=== PATIENT | female | born 1940 | race Caucasian/White ===

== ENCOUNTER 2017-03-04 09:10 | Outpatient (CLI) | payer OTHER, BC ==
--- NOTE | 2017-03-04 12:59 | DIAGNOSTIC IMAGING REPORT ---
PROCEDURE: US ART LOWER EXT WITH PASCUAL-B/L INDICATION: DIABETIC, NON HEALING ULCERS TECHNIQUE: Color Doppler duplex imaging of the lower extremity arterial system was performed bilaterally. Pre exercise ABIs were acquired. The patient was unable to exercise. COMPARISON: None. FINDINGS: RIGHT LOWER EXTREMITY: ABIs: Pre exercise posterior tibial: 1.12. Pre exercise dorsalis pedis: 1.01. VESSELS/ WAVEFORMS: Triphasic arterial inflow there is triphasic flow throughout the majority of the right lower extremity with biphasic arterial flow in the right dorsalis pedis. Mild calf edema seen. No focal arterial stenosis visualized. RIGHT LOWER EXTREMITY PEAK SYSTOLIC VELOCITIES: External iliac: 112 cm/second. Common femoral artery: 100 cm/second. Profunda femoral artery: 35 cm/second. Proximal superficial femoral artery: 113 cm/second. Mid superficial femoral artery: 116 cm/second. Distal superficial femoral artery: 92 cm/second. Popliteal artery: 72 cm/second. Proximal posterior tibial artery: 76 cm/second. Proximal anterior tibial artery: 62 cm/second. Peroneal artery: 53 cm/second. Distal posterior tibial artery: 90 cm/second. Dorsalis pedis artery: 75 cm/second. LEFT LOWER EXTREMITY: ABIs: Pre exercise posterior tibial: 1.12. Pre exercise dorsalis pedis: 1.03. VESSELS/ WAVEFORMS: Barely triphasic arterial inflow and biphasic flow throughout the left lower extremity. LEFT LOWER EXTREMITY PEAK SYSTOLIC VELOCITIES: External iliac: 86 cm/second. Common femoral artery: 87 cm/second. Profunda femoral artery: 79 cm/second. Proximal superficial femoral artery: 110 cm/second. Mid superficial femoral artery: 97 cm/second. Distal superficial femoral artery: 89 cm/second. Popliteal artery: 65 cm/second. Proximal posterior tibial artery: 57 cm/second. Proximal anterior tibial artery: 76 cm/second. Peroneal artery: 45 cm/second. Distal posterior tibial artery: 78 cm/second. Dorsalis pedis artery: 80 cm/second. IMPRESSION: 1. Biphasic arterial flow in the left lower extremity suggestive of mild atherosclerotic disease without focal arterial stenosis. 2. No evidence of resting arterial insufficiency given ankle-brachial indices. 3. No focal velocity elevation or wave form change in the right lower extremity to suggest a focal arterial stenosis.
--- NOTE | 2017-03-04 13:04 | DIAGNOSTIC IMAGING REPORT ---
PROCEDURE: US VENOUS - BILATERAL EXT INDICATION: DIABETIC, NON HEALING WOUNDS TECHNIQUE: Duplex sonography of the deep and superficial venous system in both lower extremities was performed. Compression and augmentation techniques were used. The patient was scanned in the upright position. Surveillance of the venous system during Valsalva maneuver when appropriate was performed. COMPARISON: None. FINDINGS: Each interrogated segment of the deep vein demonstrates normal compressibility, augmentation, and normal color Doppler flow without filling defect. No thrombus in either greater saphenous or short saphenous vein. There is venous reflux in the right greater saphenous vein. Reflux duration is 2.2 seconds. The vein measures 5 mm in maximal diameter in the proximal segment. There is venous reflux in the left greater saphenous vein. Reflux duration is 1.2 seconds maximally. The vein measures 6 mm in maximal diameter in the proximal segment. There is venous reflux in the right deep system. The mid segment of the superficial femoral vein demonstrates reflux for a duration of 1.5 seconds. The vein measures 12 mm in diameter whereas the proximal superficial femoral vein measures 6 mm in diameter. There is venous reflux in the left common femoral vein for a duration of 1.3 seconds. The left superficial femoral vein is competent. No venous varicosities are seen. IMPRESSION: 1. Venous reflux present in both the deep and superficial venous system bilaterally.
== END 2017-03-04 23:00 ==
LOC: US SRH 09:10
DX: E11.622 Type 2 diabetes mellitus with other skin ulcer (principal); L97.919 Non-pressure chronic ulcer of unspecified part of right lower leg with unspecified severity; I87.2 Venous insufficiency (chronic) (peripheral)